=== PATIENT | female | born 1980 | race Native Hawaiian/Other Pacific Islander ===

== ENCOUNTER 2022-01-26 21:38 | Emergency (ER) | payer OTHER ==
[~2022-01-26] VITALS: Ht 172.7 cm; Wt 108.9 kg
[2022-01-26 23:20] VITALS: BP 140/96; TEMP 98.2
== END 2022-01-26 22:30 | disposition home or self-care (01) ==
LOC: ED 21:38
DX: M54.59 Other low back pain (principal); M25.552 Pain in left hip
CPT/HCPCS: 80307; 81002; 96372; 99283; J1885; J2360